=== PATIENT | female | born 1945 | race Caucasian/White ===

== ENCOUNTER → 2017-05-27 | Outpatient (CLI) | payer OTHER, MEDICARE | LOC: RAD 14:24 | DX: M79.675 Pain in left toe(s) (principal); M79.89 Other specified soft tissue disorders ==

== ENCOUNTER → 2017-06-26 | Outpatient (CLI) | payer OTHER | LOC: CAT 07:29 | DX: Z13.6 Encounter for screening for cardiovascular disorders (principal) ==

== ENCOUNTER → 2017-06-26 | Outpatient (CLI) | payer OTHER, MEDICARE | LOC: NUC 07:27 | DX: Z13.820 Encounter for screening for osteoporosis (principal); Z78.0 Asymptomatic menopausal state ==

== ENCOUNTER → 2018-03-26 | Outpatient (CLI) | payer OTHER, MEDICARE | LOC: RAD 02:21 | DX: Z12.31 Encounter for screening mammogram for malignant neoplasm of breast (principal) ==

== ENCOUNTER → 2019-11-10 | Outpatient (CLI) | payer OTHER, MEDICARE | LOC: BC 09:06 | PROVIDERS: ATTEND Family Medicine | DX: Z12.31 Encounter for screening mammogram for malignant neoplasm of breast (principal) ==

== ENCOUNTER → 2020-09-21 | Outpatient (CLI) | payer OTHER, MEDICARE | LOC: SJCVCIMAG 09:51 | PROVIDERS: ATTEND Family Medicine | DX: I07.1 Rheumatic tricuspid insufficiency (principal) ==

== ENCOUNTER → 2020-11-28 | Outpatient (CLI) | payer OTHER, MEDICARE | LOC: NUC 10:13 → BC 10:13 | PROVIDERS: ATTEND Family Medicine | DX: Z12.31 Encounter for screening mammogram for malignant neoplasm of breast (principal); N63.22 Unspecified lump in the left breast, upper inner quadrant; M81.0 Age-related osteoporosis without current pathological fracture ==

== ENCOUNTER → 2020-11-29 | Outpatient (CLI) | payer OTHER, MEDICARE | LOC: ULTRA 14:17 | PROVIDERS: ATTEND Family Medicine | DX: N63.20 Unspecified lump in the left breast, unspecified quadrant (principal); N63.10 Unspecified lump in the right breast, unspecified quadrant ==